=== PATIENT | female | born 2000 ===

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

== ENCOUNTER 2018-05-18 16:15 | Emergency (ER) | payer OTHER ==
[2018-05-18 16:23] VITALS: BP 99/57; PULSE 81; RESP 16; TEMP 97.8; O2SAT 98
--- NOTE | 2018-05-18 17:04 | ED PDOC ---
HPI: Skin/Bite Injury Time Seen by Provider: 05/18/18 16:26 Chief Complaint (Nursing): Abnormal Skin Integrity Chief Complaint (Provider): Abnormal Skin Integrity History Per: Patient History/Exam Limitations: no limitations Onset/Duration Of Symptoms: Days (x7) Current Symptoms Are (Timing): Still Present Quality Of Symptoms: Itching Additional Complaint(s): Portia Nina is a 17 year old female with a past medical history of anxiety who is presenting to the ED for evaluation of itchy rash onset 1 week ago. Patient states that the rash began on her right anterior hip and noted similar lesions on left hip, axilla, and back. She denies any similar symptoms in the past and denies using any new lotions creams, detergents etc. She states that she did not take any medications prior to arrival or eat any new foods. Patient reports that otherwise she is feeling well. PMD: Cipriano Russo Past Medical History Reviewed: Historical Data, Nursing Documentation, Vital Signs Vital Signs: Last Vital Signs Temp 97.8 F 05/18/18 16:21 Pulse 81 05/18/18 16:21 Resp 16 05/18/18 16:21 BP 99/57 L 05/18/18 16:21 Pulse Ox 98 05/18/18 16:21 - Medical History PMH: Anxiety Denies: Diabetes, Hepatitis, HIV, HTN, Chronic Kidney Disease, Seizures, Sexually Transmitted Disease - Surgical History Surgical History: No Surg Hx - Family History Family History: States: Unknown Family Hx - Social History Current smoker - smoking cessation education provided: No Alcohol: None Drugs: Denies - Home Medications Home Medications: Ambulatory Orders Medication Instructions Recorded Permethrin 5% [Permethrin 5% Cream] 30 g TOP ONCE #30 tube 05/18/18 - Allergies Allergies/Adverse Reactions: Allergies Allergy/AdvReac Type Severity Reaction Status Date / Time No Known Allergies Allergy Verified 05/18/18 16:19 Review of Systems ROS Statement: Except As Marked, All Systems Reviewed And Found Negative Skin: Positive for: Rash, Lesions Physical Exam - Reviewed Nursing Documentation Reviewed: Yes Vital Signs Reviewed: Yes - Physical Exam Appears: Positive for: Non-toxic, No Acute Distress Head Exam: Positive for: ATRAUMATIC, NORMAL INSPECTION, NORMOCEPHALIC Skin: Positive for: Warm, Dry, Rash (mixed open/execrated lesions and erythematous areas on bilateral hip and lower back ) Neurologic/Psych: Positive for: Alert, Oriented. Negative for: Motor/Sensory Deficits - ECG O2 Sat by Pulse Oximetry: 98 (RA) Pulse Ox Interpretation: Normal Medical Decision Making Medical Decision Making: Time: 16:30 Patient seen and examined by Dr. Cardoso, discussed treatment plan. Plan discussed with patient. Upon provider evaluation patient is medically stable for discharge home. Advised to follow up with day care worker. Scribe Attestation: Documented by Janis Flores, acting as a scribe for Saritha Quiroga PA-C. Provider Scribe Attestation: All medical record entries made by the Scribe were at my direction and personally dictated by me. I have reviewed the chart and agree that the record accurately reflects my personal performance of the history, physical exam, medical decision making, and the department course for this patient. I have also personally directed, reviewed, and agree with the discharge instructions and disposition. Disposition - Clinical Impression Clinical Impression: Scabies - Patient ED Disposition Is Patient to be Admitted: No Counseled Patient/Family Regarding: Diagnosis, Need For Followup, Rx Given - Disposition Disposition: Routine/Home Disposition Time: 17:02 Condition: GOOD Prescriptions: Permethrin 5% [Permethrin 5% Cream] 30 g TOP ONCE #30 tube Instructions: Scabies (DC) Forms: [facility] (Guamanian)
== END 2018-05-18 17:30 | disposition home or self-care (01) ==
LOC: H.ER 16:15
DX: B86 Scabies (principal)

== ENCOUNTER 2018-09-18 22:18 | Emergency (ER) | payer OTHER ==
[2018-09-18 22:34] VITALS: TEMP 98.1
--- NOTE | 2018-09-19 00:04 | ED PDOC ---
HPI: Psych/Substance Abuse Time Seen by Provider: 09/18/18 22:44 Chief Complaint (Nursing): Psychiatric Evaluation Chief Complaint (Provider): Psychiatric Evaluation History Per: Patient History/Exam Limitations: no limitations Suicide/Self Injury Attempted (Context): None Associated Symptoms: Depression, Suicidal Thoughts Additional Complaint(s): 18 y/o female with history of depression presents to the ED due to depression and suicidal thoughts. She states she does not know why she is depressed but reports feeling suicidal today. She reports she had an appointment with her psychiatrist, Melecio Malone, but feels that he does not understand the severity of her condition. She denies any alcohol or drug use today. Past Medical History Reviewed: Historical Data, Nursing Documentation, Vital Signs Vital Signs: Last Vital Signs Temp 98.1 F 09/18/18 22:29 Pulse 93 H 09/18/18 22:29 Resp 16 09/18/18 22:29 BP 121/79 09/18/18 22:29 Pulse Ox 98 09/18/18 22:29 - Medical History PMH: Anxiety, Depression Denies: Diabetes, Hepatitis, HIV, HTN, Chronic Kidney Disease, Seizures, Sexually Transmitted Disease - Family History Family History: States: Unknown Family Hx - Home Medications Home Medications: Ambulatory Orders Medication Instructions Recorded Permethrin 5% [Permethrin 5% Cream] 30 g TOP ONCE #30 tube 05/18/18 - Allergies Allergies/Adverse Reactions: Allergies Allergy/AdvReac Type Severity Reaction Status Date / Time No Known Allergies Allergy Verified 09/18/18 22:29 Review of Systems ROS Statement: Except As Marked, All Systems Reviewed And Found Negative Psych: Positive for: Depression, Suicidal ideation Physical Exam - Reviewed Nursing Documentation Reviewed: Yes Vital Signs Reviewed: Yes - Physical Exam Appears: Positive for: Well, Non-toxic, No Acute Distress Head Exam: Positive for: ATRAUMATIC, NORMAL INSPECTION, NORMOCEPHALIC Skin: Positive for: Normal Color, Warm, DRY Eye Exam: Positive for: EOMI, Normal appearance, PERRL ENT: Positive for: Normal ENT Inspection Neck: Positive for: Normal, Painless ROM Cardiovascular/Chest: Positive for: Regular Rate, Rhythm. Negative for: Murmur Respiratory: Positive for: Normal Breath Sounds. Negative for: Respiratory Dist ress Gastrointestinal/Abdominal: Positive for: Normal Exam, Soft. Negative for: Tenderness Back: Positive for: Normal Inspection Extremity: Positive for: Normal ROM Neurologic/Psych: Positive for: Alert, Oriented, Mood/Affect (depressed and crying). Negative for: Motor/Sensory Deficits - Laboratory Results Result Diagrams: 09/18/18 23:37 09/18/18 23:37 - ECG O2 Sat by Pulse Oximetry: 98 (RA) Pulse Ox Interpretation: Normal Medical Decision Making Medical Decision Making: Time: 23:00 A/P: 18 y/o with depression and suicidal thoughts * Labs * Crisis evaluation * 1:1 observation 1:10 Crisis cleared patient with diagnosis of Depresison by Dr. Mcgowan Outpatient referral given Scribe Attestation: Documented by Graeme Lemus acting as a scribe for Casey Jean MD. Provider Scribe Attestation: All medical record entries made by the Scribe were at my direction and personally dictated by me. I have reviewed the chart and agree that the record accurately reflects my personal performance of the history, physical exam, medical decision making, and the department course for this patient. I have also personally directed, reviewed, and agree with the discharge instructions and disposition. Disposition - Clinical Impression Clinical Impression: Depression - Patient ED Disposition Is Patient to be Admitted: No - Disposition Disposition: Routine/Home Disposition Time: 01:15 Condition: IMPROVED Instructions: Depression, Adult (DC), Suicide Prevention Forms: [employer] (Senegalese)
[2018-09-19 00:28] LABS: BASO % 0.6 % (0.0-2.0); EOS # 0.2 K/uL (0.0-0.7); EOS % 4.8 % (0.0-4.0); LYMPH # 1.4 K/uL (1.0-4.3); LYMPH % 30.5 % (20.0-40.0); MEAN CORPUSCULAR HEMOGLOBIN 28.5 pg (27.0-31.0); MEAN CORPUSCULAR HGB CONC 33.2 g/dL (33.0-37.0); MONO # 0.4 K/uL (0.0-0.8); NEUT # 2.6 K/uL (1.8-7.0); NEUT % 56.1 % (50.0-75.0); RBC 4.55 Mil/uL (3.80-5.20); RED CELL DISTRIBUTION WIDTH 13.6 % (11.5-14.5); WHITE BLOOD COUNT 4.6 K/uL (4.8-10.8)
[2018-09-19 00:37] LABS: ACETAMINOPHEN < 10.0 ug/ml (10.0-30.0); SALICYLATE < 1.0 mg/dl
[2018-09-19 00:38] LABS: BLOOD UREA NITROGEN 11 mg/dl (7-17); CALCIUM 9.7 mg/dL (8.4-10.2); GFR NON-AFRICAN AMERICAN > 60
[2018-09-19 02:52] VITALS: BP 128/52; PULSE 75; RESP 20; O2SAT 99
== END 2018-09-19 01:30 | disposition home or self-care (01) ==
LOC: H.ER 22:18
DX: F32.9 Major depressive disorder, single episode, unspecified (principal); F41.9 Anxiety disorder, unspecified